=== PATIENT | male | born 1950 | race Hispanic/Latino ===

== ENCOUNTER 2016-11-21 17:21 | Emergency (ER) | payer MEDICARE, MEDICAID ==
[2016-11-21] MEDS ORDERED: CLEOCIN IM ONE (20:53)
[2016-11-21] MEDS ORDERED: BOOSTRIX IM ONE (20:53)
--- NOTE | 2016-11-21 20:55 | Emergency Department Report ---
- General Chief complaint: Wound/Laceration Stated complaint: LEFT LEG LAC/LEFT ARM LAC Time Seen by Provider: 11/21/16 20:50 Source: patient, family Mode of arrival: Ambulatory Limitations: No Limitations - History of Present Illness Initial comments: Patient here with family member states he accidentally ran More into [employer]. He is complaining a skin tear studies left forearm with bleeding controlled with dressing also he is complaining of cuts to his left leg that he said he controlled by putting a dressing on it. Pain is 4-10 to left forearm and left leg. Denies any numbness or tingling. Eyes any head injury or fall. He said a piece of tree branch fell on him and created abrasions to his left forearm and cuts to his left leg. Tetanus vaccine is not up-to-date MD complaint: laceration, other (abrasions) -: This evening Tetanus Up to Date: no Location: LUE, LLE Severity: mild Severity scale (0 -10): 4 Quality: other (sore) Consistency: intermittent Improves with: immobilization Worsens with: palpation, movement Context: other (injury) Associated symptoms: athralgias Treatments Prior to Arrival: bandages - Related Data Home Medications Medication Instructions Recorded Confirmed Last Taken Benazepril HCl [Benazepril HCl] 20 mg PO DAILY 07/11/13 07/11/13 07/10/13 08:00 20mg Previous Rx's Medication Instructions Recorded Last Taken Type Bacitracin/Pramoxine/Aloe Vera 28 gm TP BID #1 oint...g. 11/21/16 Unknown Rx [Bacitraycin Plus Ointment] Cephalexin [Keflex] 500 mg PO Q8HR #21 cap 11/21/16 Unknown Rx Allergies Allergy/AdvReac Type Severity Reaction Status Date / Time No Known Allergies Allergy Verified 11/21/16 17:27 Abscess Boil HPI - HPI Chief Complaint: Wound/Laceration Stated Complaint: LEFT LEG LAC/LEFT ARM LAC Time Seen by Provider: 11/21/16 20:50 Home Medications: Home Medications Medication Instructions Recorded Confirmed Last Taken Benazepril HCl [Benazepril HCl] 20 mg PO DAILY 07/11/13 07/11/13 07/10/13 08:00 20mg Previous Rx's Medication Instructions Recorded Last Taken Type Bacitracin/Pramoxine/Aloe Vera 28 gm TP BID #1 oint...g. 11/21/16 Unknown Rx [Bacitraycin Plus Ointment] Cephalexin [Keflex] 500 mg PO Q8HR #21 cap 11/21/16 Unknown Rx Allergies/Adverse Reactions: Allergies Allergy/AdvReac Type Severity Reaction Status Date / Time No Known Allergies Allergy Verified 11/21/16 17:27 ED Review of Systems ROS: Stated complaint: LEFT LEG LAC/LEFT ARM LAC Other details as noted in HPI Comment: All other systems reviewed and negative Constitutional: denies: chills, fever Respiratory: no symptoms reported Cardiovascular: denies: chest pain, palpitations, edema, syncope Gastrointestinal: denies: abdominal pain, nausea, vomiting Musculoskeletal: arthralgia. denies: back pain Skin: other (skin cut and laceration. Abrasions) Neurological: denies: headache, weakness, numbness, paresthesias, confusion, abnormal gait, vertigo ED Past Medical Hx - Past Medical History Previous Medical History?: Yes Hx Hypertension: Yes Hx of Cancer: Yes (TONGUE) Hx Arthritis: Yes Hx Seizures: Yes Additional medical history: ENLARGED PROSTATE - Surgical History Past Surgical History?: Yes Additional Surgical History: ABD SURGERY -"RUPTURED INTESTINES" - Family History Family history: hypertension - Social History Smoking Status: Current Every Day Smoker Substance Use Type: Alcohol - Medications Home Medications: Home Medications Medication Instructions Recorded Confirmed Last Taken Type Benazepril HCl [Benazepril HCl] 20 mg PO DAILY 07/11/13 07/11/13 07/10/13 08:00 History 20mg Bacitracin/Pramoxine/Aloe Vera 28 gm TP BID #1 oint...g. 11/21/16 Unknown Rx [Bacitraycin Plus Ointment] Cephalexin [Keflex] 500 mg PO Q8HR #21 cap 11/21/16 Unknown Rx ED Physical Exam - General Limitations: No Limitations General appearance: alert, in no apparent distress - Head Head exam: Present: atraumatic, normocephalic, normal inspection - Expanded Head Exam Expanded Head exam: Absent: laceration, abrasion, contusion, hematoma, racoon eyes, wu's sign, general tenderness, tenderness of temporal artery, CSF rhinorrhea , CSF otorrhea - Neck Neck exam: Present: normal inspection, full ROM. Absent: tenderness, lymphadenopathy - Respiratory Respiratory exam: Present: normal lung sounds bilaterally. Absent: respiratory distress, chest wall tenderness - Cardiovascular Cardiovascular Exam: Present: regular rate, normal rhythm, normal heart sounds - GI/Abdominal GI/Abdominal exam: Present: soft, normal bowel sounds. Absent: distended, tenderness, guarding, rebound, rigid - Expanded Lower Extremity Exam Left Hip exam: Present: normal inspection, full ROM, pelvic stability. Absent: tenderness, swelling, abrasion, laceration, ecchymosis, deformity, crepidus, dislocation, erythema, external rotation, internal rotation, shortening Upper Leg exam: Present: normal inspection, full ROM. Absent: tenderness, swelling, abrasion, laceration, ecchymosis, deformity, crepidus, dislocation, erythema Knee exam: Present: normal inspection, full ROM, full knee extension. Absent: tenderness, swelling, abrasion, laceration, ecchymosis, deformity, crepidus, dislocation, erythema, effusion Lower Leg exam: Present: full ROM, tenderness (around laceration site), swelling (small contusion), abrasion (abrasions with quarter size hematoma 6cm laceration to left anterior leg), laceration (centimeter laceration to left anterior leg), ecchymosis. Absent: normal inspection, deformity, crepidus, dislocation, erythema, palpable cord, Julianna's sign Ankle exam: Present: normal inspection, full ROM. Absent: tenderness, swelling , abrasion, laceration, ecchymosis, deformity, crepidus, dislocation, erythema Foot/Toe exam: Present: normal inspection, full ROM. Absent: tenderness, swelling, abrasion, laceration, ecchymosis, deformity, crepidus, dislocation, erythema, amputation, puncture wound, foreign body, calcaneal tenderness, tenderness at base of 5th metatarsal, nail avulsion, subungual hematoma Neuro vascular tendon exam: Present: no vascular compromise. Absent: pulse deficit, abnormal cap refill, motor deficit, sensory deficit, tendon deficit, extremity cold to touch, pallor, abnormal 2-point discrimination, decreased fine /light touch, foot drop, peroneal nerve deficit, significant pain with passive ROM of distal joint Gait: Positive: observed and normal - Back Exam Back exam: Present: normal inspection, full ROM. Absent: tenderness, CVA tenderness (R), CVA tenderness (L), muscle spasm, paraspinal tenderness, vertebral tenderness, rash noted - Neurological Exam Neurological exam: Present: alert, oriented X3, normal gait - Psychiatric Psychiatric exam: Present: normal affect, normal mood - Skin Skin exam: Present: warm, dry, abrasion (abrasions to left forearm. Abrasions are superficial. Patient has good color, movement, temperature and sensation. Capillary refill is less than 3 seconds.), ecchymosis, other (laceration.). Absent: cyanosis, erythema, petechiae, pallor - Expanded Skin Exam Expanded Type of lesion: Present: laceration, abrasion (multiple to lfa) Distribution of rash: LUE (abrasions), LLE Description of rash: Present: size (6 cm), tenderness. Absent: erythematous, swelling, vesicular, blisters, crusting, fluctuant, indurated ED Course Vital Signs 11/21/16 11/22/16 17:23 00:26 Temperature 98.3 F 98.2 F Pulse Rate 98 H 86 Respiratory 17 20 Rate Blood Pressure 153/99 Blood Pressure 146/100 [Left] O2 Sat by Pulse 100 Oximetry - Reevaluation(s) Reevaluation #1: 11/21/16 23:22 Patient received clindamycin 600 mg IM along with tetanus vaccine in emergency room. Reevaluation #2: 11/21/16 23:23 Abrasions to left forearm irrigated with normal saline, cleansed with Betadine and again irrigated with normal saline. Neosporin ointment placed the site and sterile dry dressing placed the area. Laceration to leg repaired see procedure note for details. - Laceration /Wound Repair Left Medial Leg Wound Location: lower extremity Wound Length (cm): 6 Wound's Depth, Shape: into muscle, linear Irrigated w/ Saline (ccs): 500 Betadine Prep?: Yes Anesthesia: 1% Lidocaine Volume Anesthetic (ccs): 15 Wound Debrided: moderate Wound Repaired With: sutures Suture Size/Type: 4:0, 3:0 (Ethilon) Number of Sutures: 28 Layer Closure?: Yes Deep Layer Suture Size/Type: 5:0 (Vicryl) Number Deep Layer Sutures: 4 Sterile Dressing Applied?: Yes ED Medical Decision Making - Radiology Data Radiology results: report reviewed X-ray of left leg revealed no fracture or dislocation and no foreign body noted. - Medical Decision Making ED course: Patient status post injury with multiple abrasions and laceration. Procedure note for details on laceration repair. Patient is a smoker and he drinks 8 behavior today. I discussed with him alcohol can cause bleeding and smoking delay wound healing. I encouraged him he will need to try to stop smoking and drinking alcohol until his wounds are healed. Patient had wound care done to his left forearm and multiple abrasions site. See nurse's note for detail. Areas cleansed with iodine and irrigated with normal saline and triple antibiotics. By dry sterile dressing placed to side. She given clindamycin 600 mg IM and Boostrix in emergency room. I encouraged him that he needs to keep affected areas clean and dry and to apply antibiotic ointment to abrasions the area twice a day. I also instructed him to return in 7-10 days for removal of stitches. Patient discharged home with prescription for Keflex and bacitracin ointment . Critical care attestation.: If time is entered above; I have spent that time in minutes in the direct care of this critically ill patient, excluding procedure time. ED Disposition Clinical Impression: Abrasion, multiple sites, Multiple bruises, Encounter for smoking cessation counseling Laceration of left leg Qualifiers: Encounter type: initial encounter Qualified Code(s): S81.812A - Laceration without foreign body, left lower leg, initial encounter Contact with powered lawnmower as cause of accidental injury at residential institution as place of occurrence Qualifiers: Encounter type: initial encounter Qualified Code(s): W28.XXXA - Contact with powered tape transferrer, initial encounter Hematoma of left lower extremity Qualifiers: Encounter type: initial encounter Qualified Code(s): S80.12XA - Contusion of left lower leg, initial encounter Disposition: DISCHARGED TO HOME OR SELFCARE Is pt being admited?: No Does the pt Need Aspirin: No Condition: Stable Instructions: How to Stop Smoking (ED), Suture Care (ED), Laceration (ED), Contusion in Adults (ED), Abrasion (ED), Absorbable Suture Care (ED) Additional Instructions: 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 Please return in 7-10 days to have stitches removed. If you develop redness, drainage, fever at affected area. His primary care doctor or return to emergency room as these are signs of infection. Affected areas clean and dry. Take antibiotic as prescribed Apply antibiotic ointment to abrasions twice daily. Prescriptions: Bacitracin/Pramoxine/Aloe Vera [Bacitraycin Plus Ointment] 28 gm TP BID #1 oint...g. Cephalexin [Keflex] 500 mg PO Q8HR #21 cap Referrals: FRANTZ SÁNCHEZ MD [Primary Care Provider] - 2-3 Days Forms: Accompanied Note
[2016-11-21] MEDS ORDERED: TRIPLE ANTIBIOTIC TP ONE (20:58)
[2016-11-21] MEDS ORDERED: XYLOCAINE 1% 20 mL INFILTRATI ONE (20:58)
[2016-11-21] MEDS ORDERED: NACL 0.9% IR ONE ×2 (20:58→22:43)
--- NOTE | 2016-11-21 21:53 | XRay Report ---
FINAL REPORT EXAM: XR TIBIA FIBULA 2V LT HISTORY: Laceration with injury COMPARISON: None available. FINDINGS: AP lateral views of left tibia and fibula obtained. Diffuse osteopenia. Bony structures are intact. Joint spaces are preserved. No acute fracture dislocation. No radiopaque foreign body. Soft tissue injury at the anterior margin of the tibia. IMPRESSION: No acute bony abnormality. Soft tissue injury at the anterior margin the tibia. No radiopaque foreign body.
[2016-11-22 00:27] VITALS: BP 146/100
== END 2016-11-22 00:31 | disposition home or self-care (01) ==
LOC: ED 17:21
DX: S81.812A Laceration without foreign body, left lower leg, initial encounter (principal); S50.812A Abrasion of left forearm, initial encounter; I10 Essential (primary) hypertension; M19.90 Unspecified osteoarthritis, unspecified site; R56.9 Unspecified convulsions; F17.200 Nicotine dependence, unspecified, uncomplicated; W28.XXXA Contact with powered lawn mower, initial encounter; Y93.89 Activity, other specified; Y99.8 Other external cause status; Y92.89 Other specified places as the place of occurrence of the external cause
CPT/HCPCS: 90471; 90715; 96372; A6250